=== PATIENT | female | born 1960 | race African-American/Black ===

== ENCOUNTER 2019-02-27 02:40 | Emergency (ER) | payer BC, OTHER ==
[2019-02-27 03:14] VITALS: BP 140/94; PULSE 82; TEMP 98.4; BMI 32.4
--- NOTE | 2019-02-27 03:49 | PDOC ---
History of Present Illness - General Chief Complaint: Rash Stated Complaint: RASH Time Seen by Provider: 02/27/19 03:16 History Source: Patient - History of Present Illness Initial Comments: 02/27/19 03:43 59 year old female c/o redness and irritation to the pubic area.patient reports increased redness and tenderness to the area. " i just want to make sure i dont have a staph infection." denies fever/ chills PMHX: hypertension 02/27/19 03:49 Past History - Past Medical History Allergies/Adverse Reactions: Allergies Allergy/AdvReac Type Severity Reaction Status Date / Time No Known Allergies Allergy Verified 02/27/19 03:14 Home Medications: Ambulatory Orders Cephalexin Monohydrate [Keflex -] 250 mg PO Q8H #21 capsule 02/27/19 Sulfamethoxazole/Trimethoprim [Bactrim Ds -] 1 tab PO BID #14 tablet 02/27/19 - Psycho Social/Smoking Cessation Hx Smoking History: Never smoked Hx Alcohol Use: No Drug/Substance Use Hx: No Review of Systems - Review of Systems Able to Perform ROS?: Yes Is the patient limited [place] proficient: No Integumentary: Yes: Erythema, Rash *Physical Exam - Vital Signs Last Vital Signs Temp Pulse Resp BP Pulse Ox 98.4 F 82 19 140/94 98 02/27/19 02:40 02/27/19 02:40 02/27/19 02:40 02/27/19 02:40 02/27/19 02:40 - Physical Exam General Appearance: Yes: Appropriately Dressed Female Pelvic Exam: positive: other (olive sized erythema with blistering/ pustule to pubic area, warm to touch. no fluctuant mass) Integumentary: positive: Erythema Neurologic: positive: Fully Oriented, Alert ED Progress Note - Progress Note Progress Note: 02/27/19 03:51 A: early cellulitis/ abscess to the pubic area P: oral antibiotics. close pcp follow up for wound check Discharge - Discharge Information Problems reviewed: Yes Clinical Impression/Diagnosis: Cellulitis of pubic region Condition: Fair Disposition: HOME - Additional Discharge Information Prescriptions: Cephalexin Monohydrate [Keflex -] 250 mg PO Q8H #21 capsule Sulfamethoxazole/Trimethoprim [Bactrim Ds -] 1 tab PO BID #14 tablet - Follow up/Referral Referrals: ON STAFF,NOT [Primary Care Provider] - - Patient Discharge Instructions Patient Printed Discharge Instructions: Cellulitis Additional Instructions: apply warm compress to the area. take cephalexin/ bactrim as prescribed. follow up with your doctor in 2 days for a wound check. return to the ER for any worsening symptoms - Post Discharge Activity Work/Back to School Note: Back to Work
== END 2019-02-27 04:45 | disposition home or self-care (01) ==
LOC: JER 02:40
DX: L03.314 Cellulitis of groin (principal); I10 Essential (primary) hypertension
CPT/HCPCS: 99282-25